=== PATIENT | male | born 1965 | race African-American/Black ===

== ENCOUNTER 2024-12-04 19:54 | Inpatient (IN) | payer MEDICAID, SELFPAY ==
[2024-12-04 19:56] VITALS: BP 131/79; PULSE 85; RESP 18; TEMP 36.4; O2SAT 96; BMI 28.2
--- NOTE | 2024-12-04 20:14 | XR_ITS ---
Examination: Duplex scan of the lower extremity, unilateral right Date and time of exam: December 04, 2024 2101 hours INDICATIONS: Right leg swelling and pain beginning 10 days ago Technique: Duplex scan of the extremity veins using B-mode/grayscale imaging and Doppler spectral analysis and color flow Attention is directed to internal echogenicity, compression and augmentation involving these veins, color flow assessment, spectral analysis Findings: Extensive acute occlusive thrombus involving right common femoral and superficial femoral veins as well as superficial greater saphenous vein, nonocclusive thrombus in the right popliteal and peroneal veins and posterior tibial vein IMPRESSION: Extensive acute deep vein thrombosis
--- NOTE | 2024-12-04 20:14 | EKG_ITS ---
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
--- NOTE | 2024-12-04 20:14 | XR_ITS ---
Examination: PA chest single view Technique whereby PA chest single view Date and time: December 04, 2024 202 hours INDICATIONS: Shortness of breath today. FINDINGS: Normal heart size. Lungs are clear. The osseous structures are intact. IMPRESSION: No active disease.
--- NOTE | 2024-12-04 20:27 | PD.EDSOB ---
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 Patient denies CP, fevers/chills, and URI symptoms. Limitations: no limitations Related Data Allergies Allergy/AdvReac Type Severity Reaction Status Date / Time No Known Allergies Allergy Verified 12/04/24 20:01 Review of Systems Review of Systems Systems Reviewed: All systems reviewed, normal except as documented Constitutional Constitutional: Reports system reviewed and no additional complaints, except as documented, Denies fever(s) and Denies headache(s) ENT Ears, Nose, Mouth, and Throat: Reports as per HPI, Denies disequilibrium, Denies headache(s) and Reports vertigo Cardiovascular Cardiovascular: Reports system reviewed and no additional complaints, except as documented, Reports as per HPI, Denies chest pain and Reports dyspnea Respiratory Respiratory: Reports system reviewed and no additional complaints, except as documented, Denies cough and Reports dyspnea Gastrointestinal Gastrointestinal: Reports system reviewed and no additional complaints, except as documented, Denies abdominal pain, Denies nausea and Denies vomiting Musculoskeletal Musculoskeletal: Reports as per HPI and Reports arthralgias Neurologic Neurologic: Reports system reviewed and no additional complaints, except as documented, Denies confusion, Denies disequilibrium, Denies headache(s) and Reports vertigo Psychiatric Psychiatric: Denies confusion Past Medical History Social History SMOKING STATUS: Never smoker ED Exam General Limitations: Present no limitations General appearance: Present alert and in no apparent distress Head Head exam: Present atraumatic Eye Eye exam: Present normal appearance, PERRL and EOMI ENT ENT exam: Present normal exam, normal oropharynx and mucous membranes moist Neck Neck exam: Present normal inspection, full ROM and trachea midline Chest Chest inspection: Present normal inspection and symmetric chest wall rise Respiratory Respiratory exam: Present normal lung sounds bilaterally Cardiovascular Cardiovascular exam: Present regular rate, normal rhythm and normal heart sounds Abdominal Exam Abdominal exam: Present soft and normal bowel sounds Extremities Exam Extremities exam: Present full ROM Expanded Lower Extremity Exam Hip/Pelvis exam: Present full ROM (R) and swelling Upper leg exam: Present full ROM and swelling Knee exam: Present full ROM and swelling Lower leg exam: Present full ROM and swelling Ankle exam: Present full ROM and swelling Back Exam Back exam: Present normal inspection and full ROM Neurological Exam Neurological exam: Present alert, oriented X3 and CN II-XII intact Psychiatric Psychiatric exam: Present normal affect and normal mood Skin Skin exam: Present warm, dry, intact and normal color Course Quality Measures none Orders Category Date Time Status Admit to Inpatient Status Routine Admission 12/05/24 00:02 Active Patient Condition Routine Admission 12/05/24 00:01 Ordered COVID-19 Screening Questionnaire NOW Care 12/04/24 23:[address] Screening NOW Care 12/04/24 21:17 Active Decision to Admit X1 Care 12/04/24 23:29 Completed EKG (ED ONLY) *Do not use* NOW Care 12/04/24 20:14 Completed Insert IV NOW Care 12/04/24 21:17 Active Notify provider NEEDED Care 12/05/24 00:01 Active Diet Regular Diet 12/05/[address] angio chest Stat Exams 12/04/24 21:17 Completed EKG (ED Only) Stat Exams 12/04/24 20:14 Draft US venous doppler LE RT Stat Exams 12/04/24 20:14 Completed XR chest 1V portable Stat Exams 12/04/24 20:14 Completed CBC AM DRAW Lab 12/05/24 05:00 Ordered CBC AM DRAW Lab 12/06/24 05:00 Ordered CBC AM DRAW Lab 12/07/24 05:00 Ordered CBC Stat Lab 12/04/24 20:40 Completed Comprehensive Metabolic Panel Stat Lab 12/04/24 20:40 Completed Lipid Panel AM DRAW Lab 12/05/24 05:00 Ordered Magnesium AM DRAW Lab 12/05/24 05:00 Ordered Magnesium AM DRAW Lab 12/06/24 05:00 Ordered Magnesium AM DRAW Lab 12/07/24 05:00 Ordered Partial Thromboplastin Time Stat Lab 12/04/24 20:40 Completed Prothrombin Time with INR Stat Lab 12/04/24 20:40 Completed Renal Function Panel AM DRAW Lab 12/05/24 05:00 Ordered Renal Function Panel AM DRAW Lab 12/06/24 05:00 Ordered Renal Function Panel AM DRAW Lab 12/07/24 05:00 Ordered Thyroid Stimulating Hormone AM DRAW Lab 12/05/24 05:00 Ordered Troponin I Stat Lab 12/04/24 20:40 Completed ALBUTEROL RT 0.5ml [Proventil Rt 0.5ml] Med 12/05/24 00:01 Active 2.5 mg INH Q4HR PRN Acetaminophen Tab [Tylenol Tab] Med 12/05/24 00:01 Active 650 mg PO Q6H PRN Ondansetron Inj [Zofran Inj] Med 12/05/24 00:01 Active 4 mg IVP Q6H PRN Sodium Chloride Rt Padmini 0.9% [NS Rt Padmini 0.9%] Med 12/05/24 00:01 Active 3 ml INH PRN PRN Code Status Routine Oth 12/05/24 00:01 Ordered Oxygen Delivery PRN RT 12/05/24 00:01 Active Vital Signs Vital signs: Vital Signs Temperature 97.6 F 12/04/24 19:56 Pulse Rate 85 12/04/24 19:56 Respiratory Rate 18 12/04/24 19:56 Blood Pressure 131/79 H 12/04/24 19:56 Pulse Oximetry (%) 96 12/04/24 19:56 Oxygen Delivery Method Room Air 12/04/24 19:56 O2 at 96% on RA and WNLs Shortness of Breath / Dyspnea MDM Narrative MDM Narrative:: 58M with history of childhood asthma and 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 Patient denies CP, fevers/chills, and URI symptoms. Physical exam reveals RLE swelling. Normal WOB and clear lungs. Gait normal. Speech normal. Patient is afebrile, calm, and alert. EKG is NSR with RBBB. CXR unremarkable. CBC and coags normal. CMP unremarkable. US extensive DVT. CTA multiple PEs. Spoke to IM resident who reports to Dr. Youngblood, who will admit patient. Patient data External records reviewed:: None Clinical information provided by:: patient Social determinants that could affect healthcare access:: none Patient has the following chronic illnesses:: childhood asthma and Valley Fever How is presenting disease/condition affected by chronic disease/condition?: exacerbated by Evaluation data The following diagnostics were reviewed and interpreted by me:: lab results, radiology exam(s) and EKG tracing(s) Lab and/or radiology exams considered but not ordered:: ordered Interpretation Summary: above Medications / Prescriptions Medications or Prescriptions considered but not ordered:: ordered Medication administrations:: Medication Administration History Acetaminophen (Acetaminophen 325 Mg Tablet) 650 mg PO Q6H PRN PRN Reason: Fever >100 or pain Stop: 01/04/25 00:00 Albuterol (Albuterol Rt 2.5 Mg/0.5 Ml Nebu) 2.5 mg INH Q4HR PRN PRN Reason: SHORTNESS OF BREATH OR WHEEZE Stop: 01/04/25 00:00 Heparin Sodium/Dextrose (Heparin In D5w Ivpb) 25,000 unit in 250 mls @ 17.472 mls/hr IV .[id number] [facility]; Protocol Stop: 12/19/24 00:14 Ondansetron HCl (Ondansetron Inj 2 Mg/Ml Inj 2 Ml) 4 mg IVP Q6H PRN; Protocol PRN Reason: NAUSEA OR VOMITING Stop: 01/04/25 00:00 Sodium Chloride (Sodium Chloride Rt Padmini 0.9% 3 Ml Nebu) 3 ml INH PRN PRN PRN Reason: SOLN Stop: 01/04/25 00:00 Discontinued Medications Heparin Sodium (Porcine) (Heparin Sod Inj 5000 Unit/Ml Vial) 7,765 unit IV X1 ONE; Protocol Stop: 12/05/24 00:06 above Consultations Consultation(s) initiated? (list below): Yes Diagnosis Shortness of Breath Differential Diagnosis: acute exacerbation of chronic obstructive airways disease, congestive heart failure, community acquired pneumonia, asthma with exacerbation, pulmonary embolism and other (DVT) Most likely diagnosis given after review of the tests above:: DVT and PE Admission Indicated Admission indicated?: indicated Admission Request Was there a request for admission?: Yes Admission Attestation Admission request attestation: Discussed case with [Dr. Youngblood] from Hospitalist service regarding admission. Discussed patients ED course, exam findings, labs, and radiology results. The Hospitalist [agrees] to accept the patient for admission. Disposition Plan Disposition Plan: Admit Discharge Plan Plan Patient Disposition: Admit Acute Care w/in Hospital Discharge Disposition comment: Stable Problem List Clinical Impression: Pulmonary embolism, DVT (deep venous thrombosis)
[2024-12-04 20:53] LABS: Basophils # (Auto) 0.0 Thou/mm3 (0.0-0.2); Basophils % (Auto) 1 % (0-2.5); Eosinophils # (Auto) 0.3 Thou/mm3 (0.0-0.5); Eosinophils % (Auto) 5 % (0-10); Hematocrit 39.3 % (41.0-53.0); Hemoglobin 13.7 g/dL (13.5-16.0); Immature Granulocytes Auto 0.01 Thou/mm3 (0.00-0.00); Lymphocytes # (Auto) 1.6 Thou/mm3 (1.0-4.8); Lymphocytes % (Auto) 25 % (10-50); Mean Corpuscular HGB Conc 34.9 g/dl (31.0-37.0); Mean Corpuscular Hemoglobin 31.1 pg (25.0-35.0); Mean Corpuscular Volume 89 fL (80-100); Monocytes # (Auto) 1.0 Thou/mm3 (0.0-0.8); Monocytes % (Auto) 16 % (0-12); Neutrophils # (Auto) 3.4 Thou/mm3 (1.8-7.7); Neutrophils % (Auto) 54 % (37-80); Nucleated Red Blood Cell # 0.00 Thou/mm3 (0.00-0.00); Nucleated Red Blood Cell % 0 /100 WBC (0); Platelet Count 170 Thou/mm3 (140-440); RDW Standard Deviation 39.9 fL (35.1-43.9); Red Blood Count 4.41 Miln/mm3 (4.50-5.90); White Blood Count 6.3 Thou/mm3 (3.8-10.6)
[2024-12-04 21:17] LABS: INR 1.0 (0.9-1.3); Partial Thromboplastin Time 27.3 Seconds (22.0-36.0); Prothrombin Time 11.1 Seconds (9.0-12.2)
--- NOTE | 2024-12-04 21:17 | XR_ITS ---
Examination: CTA chest with intravenous contrast 2-D reconstructions 3-D reconstructions, vascular Date and time of exam: December 04, 2024 1104 hours INDICATIONS: Positive for DVT on venous Doppler study today, shortness of breath chest pain today CTDI: vol (mGy) 15.77 DLP: (mGycm) 440 Technique: Multiple axial sections of the thorax have been obtained. 3 mm slice thickness, from below the hemidiaphragms to above the apices of the lungs. Mediastinal and lung density settings have been obtained. 2-D sagittal and coronal reconstructions. 3-D angiographic renderings, 3-D volume renderings, 3D post processing, vascular maximum intensity projections obtained. Contrast administered is 100 cc Isovue 370 intravenous. Low dose protocols were performed. One or more of the following dose reduction techniques were used; automated exposure control, adjustment of the mA and/or KV according to patient size, use of iterative reconstruction technique. Findings: No thoracic aortic aneurysmal dilatation Numerous bilateral pulmonary artery emboli including a distal left main pulmonary artery as well as upper and lower lobe bilateral pulmonary artery branches No pneumonia or pulmonary edema No pulmonary infarction or pneumonia The visualized liver or splenic lesion Contracted gallbladder IMPRESSION: Numerous bilateral pulmonary artery emboli
[2024-12-04 21:23] LABS: Alanine Aminotransferase 12 U/L (10-49); Albumin, Serum 4.6 gm/dL (3.5-5.0); Albumin/Globulin Ratio 1.6 (1.2-2.2); Alkaline Phosphatase 71 U/L (46-116); Anion Gap 9 (7-16); Aspartate Amino Transferase 17 U/L (0-34); BUN/Creatinine Ratio 8 Ratio (12-20); Bilirubin,Total 1.4 mg/dL (0.3-1.2); Blood Urea Nitrogen 10 mg/dL (9-23); Calcium 9.5 mg/dL (8.3-10.6); Calcium (Corrected) 9.5 mg/dL (8.5-10.1); Carbon Dioxide 29.4 mMol/L (20.0-31.0); Chloride 105 mMol/L (98-107); Creatinine (Component) 1.3 mg/dL (0.6-1.3); Estimated Creatinine Clearance 75.1 mL/min (>60); Globulin 2.9 gm/dL (2.3-3.5); Glucose 98 mg/dL (74-106); Osmolality,Calculated 283 (275-295); Potassium 3.4 mMol/L (3.4-5.1); Sodium 143 mMol/L (136-145); Total Protein 7.5 gm/dL (5.7-8.2); Troponin I < 0.020 ng/mL (0.0-0.045); eGFR > 60 See Note
[2024-12-05] VITALS (8 sets, daily range): BP systolic 149–171; BP diastolic 85–95; PULSE 72–106; RESP 16–98; TEMP 36.2–36.9; O2SAT 96–99; BMI 28.5
--- NOTE | 2024-12-05 00:01 | ESHP_ITS ---
Documentation for date of: 12/05/24 HPI History of Present Illness Chief complaint: Leg Swelling History of present illness: HPI: Patient is a 78 male no significant past medical history presenting with chief complaint of right leg swelling. According to the patient last week Saturday he first noticed his right leg starting to swell which progressively worsened and spread proximally up to his groin today. He denies any pain, warmth, fevers, vomiting and diarrhea. Also he had associated shortness of breath which began today both at rest and exacerbated by minimal exertion. Denied any orthopnea, PND, chest pain/pressure and palpitations. Today he video called his niece who is an RN in [place] and showed his leg, she instructed him to immediately present to the emergency department. Upon review patient denied any recent long car drives, he flew to [place] in August, no recent hospitalizations or prolonged immobilization, no history of cancer or hormonal therapy. He also denied any family history of coagulopathies including sickle cell disease and family history of DVT. He also never had a colonoscopy ED course: BP 131/79, pulse 85, RR 18, temp 97.6 F, SpO2 96% on room air. Labs showed T. bili 1.4. EKG showed sinus rhythm, rate 82. No acute ST changes. CXR showed no signs of pulmonary edema, effusion or consolidation. Lower extremity duplex ultrasound showed extensive acute DVT on the right CTA showed numerous bilateral pulmonary artery emboli Patient will be admitted for treatment and management of acute DVT and PE. Review of Systems Review of Systems Narrative Review of Systems: GENERAL: Denies fever/chills or diaphoresis. HEENT: Denies headaches or visual changes. Denies discharge. Neuro: Denies unusual weakness or difficulty speaking. CARDIO: As above PULM: As above GI: Denies abdominal pain, N/V/C/D. Reports having BMs. URO: Denies burning/itching/pain/urinary changes. MSK/EXT/SKIN: Denies joint/skeletal/muscle pain, issues/changes in upper or lower extremities, itchiness, or superficial pain. PSYCH: Cooperative, pleasant mood & affect. The rest of the review of systems is otherwise negative. 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 Education Level: Graduated highschool Tobacco use: Denies ETHO use: Denies Illicit drug use: Daily Marijuana use Social History Note: lives alone Family History: Grandmother- Glioblastoma Grandfather- Heart disease, in his 30's Exam Vital Signs Temp Pulse Resp BP Pulse Ox O2 Del Method 97.6 F 85 18 131/79 H 96 Room Air 12/04/24 19:56 12/04/24 19:56 12/04/24 19:56 12/04/24 19:56 12/04/24 19:56 12/04/24 19:56 Narrative Exam Constitutional Alert, oriented x 3 and comfortable HEENT Vision grossly intact. Patent nares. Trachea midline Respiratory Chest normal on inspection and clear auscultation bilaterally Cardiovascular S1 and S2 audible, RRR. No murmurs carotid bruit. No gross JVD. Abdominal Soft and non tender to palpation in all quadrants. BS + Genitourinary No bladder tenderness, no flank pain. Normal to palpation Musculoskeletal Extremities tone within normal limits. Nonpitting edema of right lower extremity up to groin. Healed surgical scar over the right knee. Homans' sign negative Neurological CN II - XII grossly intact. Extremity motor and sensation grossly intact. Skin Warm, dry and intact. No apparent lesions. Psychiatric Patient has good affect, is cooperative Results: Labs 12/05/24 04:46 12/05/24 04:46 Labs: Short CBC 12/04/24 Range/Units 20:40 WBC 6.3 (3.8-10.6) Thou/mm3 Hgb 13.7 (13.5-16.0) g/dL Hct 39.3 L (41.0-53.0) % Plt Count 170 (140-440) Thou/mm3 BMP 12/04/24 20:40 Sodium 143 Potassium 3.4 Chloride 105 Carbon Dioxide 29.4 BUN 10 Creatinine 1.3 Glucose 98 Calcium 9.5 Cardiac Enzymes 12/04/24 Range/Units 20:40 Troponin I < 0.020 (0.0-0.045) ng/mL Liver Function 12/04/24 Range/Units 20:40 Total Bilirubin 1.4 H (0.3-1.2) mg/dL AST 17 (0-34) U/L ALT 12 (10-49) U/L Alkaline Phosphatase 71 (46-116) U/L Albumin 4.6 (3.5-5.0) gm/dL Quality Measures Quality Measures none Medications Home Medications and Allergies Home Medications ?Medication ?Instructions ?Recorded ?Confirmed ?Type No Known Home Medications 12/05/2411/17 History Allergies Allergy/AdvReac Type Severity Reaction Status Date / Time No Known Allergies Allergy Verified 12/04/24 20:01 Assessment & Plan Plan Patient is a 78 male no significant past medical history presenting with chief complaint of right leg swelling. Patient will be admitted for treatment and management of acute DVT and PE. Acute, unprovoked DVT Acute pulmonary embolism Patient had progressively worsening right leg swelling since last week now associated with shortness of breath. Lower extremity duplex ultrasound showed extensive right lower limb DVT. CTA showing extensive bilateral pulmonary emboli. Patient has no traditional risk factors for DVT. He will benefit from age- appropriate cancer screening and hypercoagulable workup. Plan: - Factor V Leiden, prothrombin gene mutation, anticardiolipin antibodies and anti-beta 2 glycoprotein 1 antibodies ordered as part of hypercoagulable workup.[These are not affected by starting anticoagulation] ? Heparin infusion, DVT protocol ? Transthoracic echocardiogram ordered to assess for right heart strain - Recommend patient be referred for outpatient colonoscopy and age appropriate cancer screening ? eyeglass frames polisher, Dr. Sung consulted for assessment for thrombectomy. History of marijuana use Patient says that he uses medical marijuana daily for his neck pain. Plan: -Patient extensively counseled on smoking cessation and informed of the risks of blood clots, strokes etc. Patient agrees to think about it. History of Valley Fever [2013] Patient states that he never was prescribed any medication for valley fever. He only got an inhaler from his doctor. Plan: -Cocci serology Health maintenance: Disposition: Heparin Infusion. Pending echo. Cardiology consult pending Diet: Regular Lines: pIVs GI Prophylaxis: None Thrombo Prophylaxis: Heparin infusion Code status: FULL CODE Plan of care discussed with Attending Dr. Rylie Lockwood MD PGY 2 Disclaimer: This note was dictated by speech recognition. Minor errors in cloth measurer may be present due to voice recognition software. Attending Provider Attestation/Addendum 58-year-old male patient who is being admitted for DVT and acute pulmonary embolism. He anticoagulation was started. I discussed with and supervised the resident physician who took care of this patient. I agree with the assessment and plan as above.
--- NOTE | 2024-12-05 00:05 | ECHO_ITS ---
Transthoracic Echo Report Ht (in): 73 Wt (lb): 214 Exam Location: Echo Lab Status: Emergency Pressure Tank Operator: Marilin Weaver Indications: Procedure Performed: BP: 144 / 77 HR: 68 Technical Quality: Technically difficult study MEASUREMENTS (Male / Female) Normal Values 2D ECHO LV Diastolic Diameter PLAX 4.3 cm 4.2 - 5.9 / 3.9 - 5.3 cm LV Systolic Diameter PLAX 2.9 cm IVS Diastolic Thickness 1.1 cm 0.6 - 1.0 / 0.6 - 0.9 cm LVPW Diastolic Thickness 1.0 cm 0.6 - 1.0 / 0.6 - 0.9 cm LV Relative Wall Thickness 0.5 LVOT Diameter 1.6 cm LV Ejection Fraction MOD BP 61.9 % >= 55 % LV Cardiac Index MOD BP 1551.5 cm?/min?m? LV Ejection Fraction MOD 4C 61.6 % LV Cardiac Index MOD 4C 1602.8 cm?/min?m? LV Ejection Fraction 4C AL 63.3 % LV Cardiac Index 4C AL 1727.1 cm?/min?m? LV Ejection Fraction MOD 2C 61.9 % LV Cardiac Index MOD 2C 1473.0 cm?/min?m? LV Ejection Fraction 2C AL 62.6 % LV Cardiac Index 2C AL 1555.0 cm?/min?m? LA Volume Index 16.6 cm?/m? 16 - 28 cm?/m? M-MODE Aortic Root Diameter MM 2.9 cm LA Systolic Diameter MM 3.6 cm LA Ao Ratio MM 1.2 AV Cusp Separation MM 2.4 cm DOPPLER AV Peak Velocity 149.5 cm/s AV Peak Gradient 8.9 mmHg AV Mean Gradient 6.0 mmHg AV Velocity Time Integral 33.2 cm LVOT Peak Velocity 129.0 cm/s LVOT Peak Gradient 6.7 mmHg LVOT Velocity Time Integral 31.7 cm LVOT Cardiac Index 1923.9 cm?/min?m? AV Area Cont Eq vti 1.9 cm? AV Area Cont Eq pk 1.7 cm? MV Area PHT 3.9 cm? MR Peak Velocity 505.0 cm/s MR Peak Gradient 102.0 mmHg Mitral E Point Velocity 69.8 cm/s Mitral A Point Velocity 70.3 cm/s Mitral E to A Ratio 1.0 LV E' Lateral Velocity 15.0 cm/s Mitral E to LV E' Lateral Ratio 4.7 LV E' Septal Velocity 10.2 cm/s Mitral E to LV E' Septal Ratio 6.8 FINDINGS Left Ventricle Normal left ventricular size, wall thickness, systolic function with no obvious regional wall motion abnormalities. Normal left ventricular diastolic filling pattern for age. The ejection fraction is visually estimated at 65%.. Right Ventricle The right ventricle is normal in size and systolic function. Left Atrium The left atrium is normal by two-dimensional, color flow and Doppler imaging with no structural abnormalities, no thrombus formation present. Right Atrium The right atrium is normal by two-dimensional imaging, color flow and Doppler imaging with no structural abnormalities, no thrombus formation present. Atrial Septum The interatrial septum appears normal with no evidence of a shunt. Aorta The aorta is normal by two-dimensional, color flow and Doppler interrogation. Mitral Valve The mitral valve is normal by two-dimensional, color flow and Doppler interrogation. Trace mitral regurgitation. Aortic Valve The aortic valve is trileaflet and normal by two-dimensional, color flow and Doppler interrogation. There is no significant aortic valve regurgitation. Tricuspid Valve The tricuspid valve is normal by two-dimensional, color flow and Doppler interrogation. There is trace tricuspid valve regurgitation. Pulmonic Valve The pulmonic valve is not well visualized. There is no significant pulmonic valve regurgitation. Vessels The pulmonary artery appears normal. The inferior vena cava pulmonary and hepatic veins appear normal. Pericardium The pericardium is normal by two-dimensional imaging. There is no significant pericardial effusion. CONCLUSIONS Indication: Rule out right heart strain Normal-sized cardiac chambers. Normal size left ventricle with excellent LV systolic function ejection fraction of 65%. Normal-sized right atrium. Normal-sized right ventricle with normal right ventricular systolic function No evidence of right ventricular strain. Trace tricuspid valve regurgitation with normal pulmonary artery pressures. No evidence of pericardial effusion. Porsha Montoya (Electronically Signed) Final Date: 06 December 2024 15:48
--- NOTE | 2024-12-05 02:17 | PC.NURSE ---
called pharmacy heparin pending 2hrs unverfied.
[2024-12-05] MEDS: HEPARIN SOD INJ 5000 UNIT/ML VIAL 7765 UNIT IV (03:16)
[2024-12-05] MEDS: Heparin/D5w 25K 250 ML Ivpb 25,000 UNIT/250 ML BAG 17.472 UNIT IV ×2 (03:19→19:31)
[2024-12-05 05:09] LABS: Misc Send Out* See Sep Rpt
[2024-12-05 05:12] LABS: Basophils # (Auto) 0.0 Thou/mm3 (0.0-0.2); Basophils % (Auto) 1 % (0-2.5); Eosinophils # (Auto) 0.4 Thou/mm3 (0.0-0.5); Eosinophils % (Auto) 6 % (0-10); Hematocrit 36.8 % (41.0-53.0); Hemoglobin 12.8 g/dL (13.5-16.0); Immature Granulocytes Auto 0.01 Thou/mm3 (0.00-0.00); Lymphocytes # (Auto) 1.6 Thou/mm3 (1.0-4.8); Lymphocytes % (Auto) 25 % (10-50); Mean Corpuscular HGB Conc 34.8 g/dl (31.0-37.0); Mean Corpuscular Hemoglobin 31.4 pg (25.0-35.0); Mean Corpuscular Volume 90 fL (80-100); Monocytes # (Auto) 0.9 Thou/mm3 (0.0-0.8); Monocytes % (Auto) 15 % (0-12); Neutrophils # (Auto) 3.4 Thou/mm3 (1.8-7.7); Neutrophils % (Auto) 54 % (37-80); Nucleated Red Blood Cell # 0.00 Thou/mm3 (0.00-0.00); Nucleated Red Blood Cell % 0 /100 WBC (0); Platelet Count 159 Thou/mm3 (140-440); RDW Standard Deviation 39.9 fL (35.1-43.9); Red Blood Count 4.08 Miln/mm3 (4.50-5.90); White Blood Count 6.3 Thou/mm3 (3.8-10.6)
[2024-12-05 05:38] LABS: Glucose Estimated Average 114 mg/dL (80-131); Hemoglobin A1C 5.6 % Hgb (4.8-6.0)
[2024-12-05 05:45] LABS: Albumin, Serum 4.0 gm/dL (3.5-5.0); Anion Gap 7 (7-16); BUN/Creatinine Ratio 7 Ratio (12-20); Blood Urea Nitrogen 8 mg/dL (9-23); Calcium 8.9 mg/dL (8.3-10.6); Calcium (Corrected) 8.9 mg/dL (8.5-10.1); Carbon Dioxide 29.7 mMol/L (20.0-31.0); Cardiac Risk Estimate 5.2 RATIO (4.0-6.7); Chloride 107 mMol/L (98-107); Cholesterol 204 mg/dL (132-200); Creatinine (Component) 1.2 mg/dL (0.6-1.3); Estimated Creatinine Clearance 81.3 mL/min (>60); Glucose 103 mg/dL (74-106); HDL Cholesterol 39 mg/dL (40-60); LDL Cholesterol,Calculated 152 mg/dL (0-130); Magnesium 1.8 mg/dL (1.6-2.6); Osmolality,Calculated 285 (275-295); Phosphorous 2.8 mg/dL (2.4-5.1); Potassium 4.3 mMol/L (3.4-5.1); Sodium 144 mMol/L (136-145); Thyroid Stimulating Hormone 1.07 uIU/mL (0.55-4.78); Triglycerides 64 mg/dL (30-150); eGFR > 60 See Note
[2024-12-05 10:43] LABS: Partial Thromboplastin Time 84.2 Seconds (22.0-36.0)
--- NOTE | 2024-12-05 12:43 | ESPR_ITS ---
<Statement entered by Qamar Jimenez MD - 12/15/24 07:45> I reviewed above note and agree with findings and plans. I have also personally examined the patient with medicine team and went over assessment and plan with medical team including risk management internship and resident physician. Documentation for date of: 12/05/24 Subjective Subjective Interval history: Patient was seen and examined at bedside. A.m. vitals and labs reviewed. Patient denied any recent surgeries, travels, or trauma to his right knee. Venous Doppler of bilateral lower extremities showed extensive right lower limb. DVT. CTA chest showed numerous bilateral pulmonary artery emboli including distal left main pulmonary artery as well as upper and lower lobe bilateral pulmonary artery branches. Per cardiology recommendations, instead of switching to eliquis, will continue heparin infusion for possibility of pulmonary thrombectomy, but as patient is currently hemodynamically stable, it is unlikely at this moment. Today, patient feels much more stable. His right leg edema has improved. Still pain in right groin area, but no shortness of breathe, chest pain, palpitation, fevers or chills. Exam Vital Signs Temp Pulse Resp BP Pulse Ox O2 Del Method 97.2 F 75 17 150/95 H 96 Room Air 12/05/24 11:49 12/05/24 11:49 12/05/24 11:49 12/05/24 11:49 12/05/24 11:49 12/05/24 11:49 Narrative Exam General: No acute distress, well nourished Eye: PERRL, EOMI, normal conjunctiva, no scleral icterus HENT: Normocephalic, atraumatic, hearing intact to conversation at normal volume, moist oral mucosa Neck: Supple, non-tender, no JVD, no lymphadenopathy Lungs: Non-labored respirations, symmetric chest rise, Clear to auscultate bilaterally Heart: Peripheral pulses intact bilaterally Abdomen: Soft, non-tender, non-distended Musculoskeletal: Normal range of motion and strength. Right lower extremity shows non-pitting edema extending from knee to thigh compared to the left. Pain on palpitation in right groin area. Skin: Skin is warm, dry, no rashes or lesions. Psychiatric: Cooperative, appropriate mood and affect Neuro: Cranial nerves II-XII grossly intact. Strength 5/5 throughout. Sensations intact to light touch. Objective Labs 12/05/24 04:46 12/05/24 04:46 Labs: Laboratory Results - last 24 hr 12/04/24 12/05/24 12/05/24 20:40 04:46 09:35 WBC 6.3 6.3 RBC 4.41 L 4.08 L Hgb 13.7 12.8 L Hct 39.3 L 36.8 L MCV 89 90 MCH 31.1 31.4 MCHC 34.9 34.8 RDW Std Deviation 39.9 39.9 Plt Count 170 159 Neut % (Auto) 54 54 Lymph % (Auto) 25 25 [place] % (Auto) 16 H 15 H Eos % (Auto) 5 6 Baso % (Auto) 1 1 Neut # (Auto) 3.4 3.4 Lymph # (Auto) 1.6 1.6 [place] # (Auto) 1.0 H 0.9 H Eos # (Auto) 0.3 0.4 Baso # (Auto) 0.0 0.0 Immature Gran # (Auto) 0.01 H 0.01 H Absolute Nucleated RBC 0.00 0.00 Immature Gran % 0 0 Nucleated RBC % 0 0 PT 11.1 INR 1.0 APTT 27.3 84.2 H D Sodium 143 144 Potassium 3.4 4.3 D Chloride 105 107 Carbon Dioxide 29.4 29.7 Anion Gap 9 7 BUN 10 8 L Creatinine 1.3 1.2 Estim Creat Clear Calc 75.1 81.3 eGFR > 60 > 60 BUN/Creatinine Ratio 8 L 7 L Glucose [address] Glu mg/dL 114 Hemoglobin A1c 5.6 Calculated Osmolality 283 285 Calcium 9.5 8.9 Corrected Calcium 9.5 8.9 Phosphorus 2.8 Magnesium 1.8 Total Bilirubin 1.4 H AST 17 ALT 12 Alkaline Phosphatase 71 Troponin I < 0.020 Total Protein 7.5 Albumin 4.6 4.0 D Globulin 2.9 Albumin/Globulin Ratio 1.6 Triglycerides 64 Cholesterol 204 H LDL Cholesterol, Calc 152 H HDL Cholesterol 39 L Cholesterol/HDL Ratio 5.2 TSH 1.07 Quality Measures Quality Measures none Assessment & Plan Assessment Current Active Medications: Generic Name Dose Route Start Last Admin Trade Name Freq PRN Reason Stop Dose Admin Acetaminophen 650 mg 12/05/24 00:01 Acetaminophen 325 Mg Tablet PO 01/04/25 00:00 Q6H PRN Fever >100 or pain Albuterol 2.5 mg 12/05/24 00:01 Albuterol Rt 2.5 Mg/0.5 Ml Nebu INH 01/04/25 00:00 Q4HR PRN SHORTNESS OF BREATH OR WHEEZE Heparin Sodium/Dextrose 25,000 unit in 250 mls @ 17.472 mls/hr 12/05/24 00:15 12/05/24 10:57 Heparin In D5w Ivpb IV 12/19/24 00:14 16 units/kg/hr .[id number] JERRY 15.531 mls/hr Titration Protocol 18 UNITS/KG/HR Ondansetron HCl 4 mg 12/05/24 00:01 Ondansetron Inj 2 Mg/Ml Inj 2 Ml IVP 01/04/25 00:00 Q6H PRN NAUSEA OR VOMITING Protocol Sodium Chloride 3 ml 12/05/24 00:01 Sodium Chloride Rt Padmini 0.9% 3 Ml Nebu INH 01/04/25 00:00 PRN PRN SOLN Plan Patient is a 78 male no significant past medical history presenting with chief complaint of right leg swelling. Patient will be admitted for treatment and management of acute DVT and PE. #Acute, unprovoked DVT #Acute pulmonary embolism - On admission, patient had progressively worsening right leg swelling since last week now associated with shortness of breath. He no longer has shortness of breathe. -Lower extremity venous doppler ultrasound (12/04/2024) showed Extensive acute deep vein thrombosis of right extremity. -Chest CTA (12/04/2024): Numerous bilateral pulmonary artery emboli Patient has no traditional risk factors for DVT. He will benefit from age- appropriate cancer screening and hypercoagulable workup. Plan: - Factor V Leiden, prothrombin gene mutation, anticardiolipin antibodies and anti-beta 2 glycoprotein 1 antibodies ordered as part of hypercoagulable workup.[These are not affected by starting anticoagulation] ? Continue on heparin drip. ? Transthoracic echocardiogram pending - Recommend patient be referred for outpatient colonoscopy and age appropriate cancer screening ? pipe fitter maintenance, Dr. Sung consulted for assessment for thrombectomy Possible pumonary thrombectomy if patient become hymodinamically unstable. #History of marijuana use Patient says that he uses medical marijuana daily for his neck pain. Plan: -Patient extensively counseled on smoking cessation and informed of the risks of blood clots, strokes etc. Patient agrees to think about it. 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 He only got an inhaler from his doctor. Plan: -Cocci serology Health maintenance: Disposition: Heparin Infusion. Pending echo. Cardiology consult pending Diet: Regular Lines: pIVs GI Prophylaxis: None Thrombo Prophylaxis: Heparin infusion Code status: FULL CODE Assessment and plan discussed with my attending physician Dr. Tony Ramirez (PGY-1)- Internal medicine resident
--- NOTE | 2024-12-05 13:03 | PD.RESCONSUL ---
HPI Data of Consult Requesting Physician: Connor Youngblood MD Admitting Provider: Connor Youngblood MD Attending Provider: Connor Youngblood MD Primary Care Provider: Physician No Primary/Family Consult Narrative Reason for consult: DVT and pulmonary embolism History of present illness: A 57-year-old male with 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 Patient was apparently normal 1 week ago, then noticed heaviness in his right lower extremity when he is getting off of his cognos tm1 developer around 6 AM on 11/26/2024. 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 Later noted swelling in the right leg which is gradually progressive and associated with heaviness and numbness. On the day of admission, patient noted to have shortness of breath even after walking short distances around the home for which he called his niece who is a nurse practitioner and she recommended to go to the emergency department. Denies trauma, recent illness, major surgeries, immobilization, cancer. Denies previous history of CAD, similar complaints in the past, similar complaints in the family. ED course: - Vitals at the time of admission are stable except for mildly elevated blood pressure, 131/79 mmHg - Labs at the time of admission are significant for total bilirubin 1.4. Rest of CBC and CMP are within normal limits - Chest x-ray at the time of admission did not show any opacities - Venous Doppler of bilateral lower extremities showed acute deep vein thrombosis - EKG done at that time showed normal sinus rhythm with incomplete right bundle branch block - CTA chest showed numerous bilateral pulmonary artery emboli including distal left main pulmonary artery as well as upper and lower lobe bilateral pulmonary artery branches - Started on heparin drip in view of pulmonary embolism Past medical history: Valley fever Past surgical history: Tendon repair of right knee in 2012, right orbital fracture s/p placement of plates in 2000, left fifth digit fracture, fixed with screws Social history: 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 Lives at home. Smokes marijuana once every day since 2000 for muscle spasms, drinks alcohol-beer approximately 6/week. Denies any other illicit drug abuse Family history: No significant family history of CAD except in maternal grandfather who in his 30s due to heart disease. Maternal grandmother had history of lung carcinoma secondary to extensive smoking and in her 70s. Medication history: Denies medication use Allergies: NKDA Cardiology is consulted in view of pulmonary embolism secondary to right lower extremity DVT for possible pulmonary thrombectomy. cc:: cc: Connor Youngblood MD Review of Systems Review of Systems Systems Reviewed: All systems reviewed, normal except as documented Exam Vital Signs Temp Pulse Resp BP Pulse Ox O2 Del Method 97.2 F 75 17 150/95 H 96 Room Air 12/05/24 11:49 12/05/24 11:49 12/05/24 11:49 12/05/24 11:49 12/05/24 11:49 12/05/24 11:49 Narrative Exam General: Awake. Moderately built and nourished HEENT: Normocephalic, atraumatic, mucous membranes moist. Heart: Regular rate and rhythm, no murmurs. Lungs: Clear to auscultation with no wheezing or crackles. Abdomen: Soft, nondistended, nontender, positive bowel sounds. ?No guarding or rebound tenderness. Neurologic: Alert and oriented x3, no gross neurological deficit, and patient able to move all 4 extremities. Extremities: Noted extensive right lower extremity swelling with mild induration extending up to thigh with localized raise of temperature with minimal tenderness Skin: No rash or ecchymoses. Results Labs 12/05/24 04:46 12/05/24 04:46 Labs: Short CBC 12/04/24 12/05/24 Range/Units 20:40 04:46 WBC 6.3 6.3 (3.8-10.6) Thou/mm3 Hgb 13.7 12.8 L (13.5-16.0) g/dL Hct 39.3 L 36.8 L (41.0-53.0) % Plt Count 170 159 (140-440) Thou/mm3 BMP 12/04/24 12/05/24 20:40 04:46 Sodium 143 144 Potassium 3.4 4.3 D Chloride 105 107 Carbon Dioxide 29.4 29.7 BUN 10 8 L Creatinine 1.3 1.2 Glucose 98 103 Calcium 9.5 8.9 Cardiac Enzymes 12/04/24 Range/Units 20:40 Troponin I < 0.020 (0.0-0.045) ng/mL Liver Function 12/04/24 12/05/24 Range/Units 20:40 04:46 Total Bilirubin 1.4 H (0.3-1.2) mg/dL AST 17 (0-34) U/L ALT 12 (10-49) U/L Alkaline Phosphatase 71 (46-116) U/L Albumin 4.6 4.0 D (3.5-5.0) gm/dL Quality Measures Quality Measures none Medications Home Medications and Allergies Home Medications ?Medication ?Instructions ?Recorded ?Confirmed ?Type No Known Home Medications 12/05/24 12/05/24 History Allergies Allergy/AdvReac Type Severity Reaction Status Date / Time No Known Allergies Allergy Verified 12/04/24 20:01 Visit Medications Acetaminophen (Acetaminophen 325 Mg Tablet) 650 mg PO Q6H PRN PRN Reason: Fever >100 or pain Stop: 01/04/25 00:00 Albuterol (Albuterol Rt 2.5 Mg/0.5 Ml Nebu) 2.5 mg INH Q4HR PRN PRN Reason: SHORTNESS OF BREATH OR WHEEZE Stop: 01/04/25 00:00 Heparin Sodium/Dextrose (Heparin In D5w Ivpb) 25,000 unit in 250 mls @ 17.472 mls/hr IV .[id number]; Protocol Stop: 12/19/24 00:14 Last Titration: 12/05/24 10:57 Dose: 16 units/kg/hr, 15.531 mls/hr Ondansetron HCl (Ondansetron Inj 2 Mg/Ml Inj 2 Ml) 4 mg IVP Q6H PRN; Protocol PRN Reason: NAUSEA OR VOMITING Stop: 01/04/25 00:00 Sodium Chloride (Sodium Chloride Rt Padmini 0.9% 3 Ml Nebu) 3 ml INH PRN PRN PRN Reason: SOLN Stop: 01/04/25 00:00 Discontinued Medications Heparin Sodium (Porcine) (Heparin Sod Inj 5000 Unit/Ml Vial) 7,765 unit IV X1 ONE; Protocol Stop: 12/05/24 00:06 Last Admin: 12/05/24 03:16 Dose: 7,765 unit Miconazole Nitrate (Miconazole Nitrate Cr 2% 15 Gm Tube) 0 gm TOP X1 ONE Stop: 12/05/24 04:53 Assessment & Plan Plan A 57-year-old male with 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 Cardiology is consulted in view of pulmonary embolism secondary to right lower extremity DVT for possible pulmonary thrombectomy. # Unprovoked DVT # Pulmonary embolism - Presented to the hospital with chief complaints of swelling of his right lower extremity and shortness of breath. - Patient was apparently normal 1 week ago, then noticed heaviness in his right lower extremity, later noted swelling in the right leg which is gradually progressive and associated with heaviness and numbness. - On the day of admission, patient noted to have shortness of breath even after walking short distances. - Denies trauma, recent illness, major surgeries, immobilization, cancer. - Denies previous history of CAD, similar complaints in the past, similar complaints in the family. - Vitals at the time of admission are stable except for mildly elevated blood pressure, 131/79 mmHg - Labs at the time of admission are significant for total bilirubin 1.4. Rest of CBC and CMP are within normal limits. Troponins came back negative - Chest x-ray at the time of admission did not show any opacities - Venous Doppler of bilateral lower extremities showed acute deep vein thrombosis - EKG done at that time showed normal sinus rhythm with incomplete right bundle branch block - CTA chest showed numerous bilateral pulmonary artery emboli including distal left main pulmonary artery as well as upper and lower lobe bilateral pulmonary artery branches Plan - Recommended to continue heparin drip for now - BNP is ordered - Echocardiogram is ordered, did not show any significant RV strain - As patient is hemodynamically stable for now, with negative troponins, no RV strain and is maintaining saturations on oxygen -less likely needs pulmonary thrombectomy - Recommended to continue to monitor patient's clinical condition, will do pulmonary thrombectomy if patient becomes hemodynamically unstable and needs more oxygen - Recommended to workup for DVT-to rule out inherited thrombophilias and malignancy # History of valley fever # Chronic marijuana use -Rest of the clinical conditions to be treated as per primary team Thank you for allowing us to involved in the care of the patient Patient plan of care was discussed with the paper and prints restorer, Dr. Ana Lilia Brian, PGY2
[2024-12-05 13:48] LABS: B-Type Natriuretic Peptide < 20 pg/mL (0-100)
[2024-12-05 14:21] LABS: Cocci Serology, IgM Negative (Negative)
[2024-12-05] MEDS: MICONAZOLE NITRATE CR 2% 15 GM TUBE TOP (15:49)
--- NOTE | 2024-12-05 15:57 | PC.SS ---
This is 58-year-old, , male who presented to the ED due to suffering from shortness of breath. Patient appeared alert and oriented to self, place and situation. Patient was pleasant, his mood and behavior were ordinary. Patient confirmed and verified home address and phone number. Patient reported that he resides at home. Patient is unemployed. Prior to admission, patient was independent with ADLs, no DME use. Patient assigned his friend, Joi (phone: [phone]), as his medical decision maker. Patient will follow-up at the [facility]. When medically clear, patient will return home; he will need an Uber. Discharge plan: home, will need Uber for transportation. Next of kin: Joi, derek.
[2024-12-05 17:46] LABS: Partial Thromboplastin Time 49.5 Seconds (22.0-36.0)
--- NOTE | 2024-12-05 18:10 | PC.NURSE ---
Per pharmacy, Narayan wallis to run heparin drip until bag is empty.
[2024-12-05] MEDS: HEPARIN SOD INJ 5000 UNIT/ML VIAL 3900 UNIT IV (18:14)
[2024-12-06] VITALS (10 sets, daily range): BP systolic 128–157; BP diastolic 73–92; PULSE 68–90; RESP 15–97; TEMP 36.2–36.5; O2SAT 97–99
[2024-12-06 01:18] LABS: Partial Thromboplastin Time > 139.0 Seconds (22.0-36.0)
--- NOTE | 2024-12-06 02:46 | PC.NURSE ---
Dr. Roach notified of patient complaining that pain in right lower extremity (inner thigh area) is feeling worse. No new orders.
[2024-12-06 05:20] LABS: Basophils # (Auto) 0.1 Thou/mm3 (0.0-0.2); Basophils % (Auto) 1 % (0-2.5); Eosinophils # (Auto) 0.4 Thou/mm3 (0.0-0.5); Eosinophils % (Auto) 6 % (0-10); Hematocrit 35.7 % (41.0-53.0); Hemoglobin 12.6 g/dL (13.5-16.0); Immature Granulocytes Auto 0.01 Thou/mm3 (0.00-0.00); Lymphocytes # (Auto) 1.9 Thou/mm3 (1.0-4.8); Lymphocytes % (Auto) 30 % (10-50); Mean Corpuscular HGB Conc 35.3 g/dl (31.0-37.0); Mean Corpuscular Hemoglobin 31.1 pg (25.0-35.0); Mean Corpuscular Volume 88 fL (80-100); Monocytes # (Auto) 0.9 Thou/mm3 (0.0-0.8); Monocytes % (Auto) 14 % (0-12); Neutrophils # (Auto) 3.0 Thou/mm3 (1.8-7.7); Neutrophils % (Auto) 48 % (37-80); Nucleated Red Blood Cell # 0.00 Thou/mm3 (0.00-0.00); Nucleated Red Blood Cell % 0 /100 WBC (0); Platelet Count 183 Thou/mm3 (140-440); RDW Standard Deviation 38.5 fL (35.1-43.9); Red Blood Count 4.05 Miln/mm3 (4.50-5.90); White Blood Count 6.3 Thou/mm3 (3.8-10.6)
[2024-12-06 06:08] LABS: Albumin, Serum 3.8 gm/dL (3.5-5.0); Anion Gap 8 (7-16); BUN/Creatinine Ratio 9 Ratio (12-20); Blood Urea Nitrogen 10 mg/dL (9-23); Calcium 8.5 mg/dL (8.3-10.6); Calcium (Corrected) 8.7 mg/dL (8.5-10.1); Carbon Dioxide 25.8 mMol/L (20.0-31.0); Chloride 106 mMol/L (98-107); Creatinine (Component) 1.1 mg/dL (0.6-1.3); Estimated Creatinine Clearance 89.1 mL/min (>60); Glucose 95 mg/dL (74-106); Magnesium 1.7 mg/dL (1.6-2.6); Osmolality,Calculated 278 (275-295); Phosphorous 2.7 mg/dL (2.4-5.1); Potassium 3.6 mMol/L (3.4-5.1); Sodium 140 mMol/L (136-145); eGFR > 60 See Note
[2024-12-06 09:48] LABS: Partial Thromboplastin Time 100.2 Seconds (22.0-36.0)
[2024-12-06] MEDS: Magnesium Sulfate 2 GM Ivpb 2 GM/50 ML BAG IV (10:06)
[2024-12-06] MEDS: POTASSIUM CHL 10 mEq IVPB 10 MEQ/100 ML BAG 100 MEQ IV ×3 (10:06→12:32)
--- NOTE | 2024-12-06 11:27 | ESPR_ITS ---
<Statement entered by Qamar Jimenez MD - 12/15/24 07:46> I reviewed above note and agree with findings and plans. I have also personally examined the patient with medicine team and went over assessment and plan with medical team including product development intern and resident physician. Documentation for date of: 12/06/24 Senior resident attestation: Patient evaluated and examined at the bedside, plan of care discussed with rest of the team including my attending physician, except as noted. Patient saturating well on room air, complaining of slight discomfort in his right leg, but no difficulty breathing. Reported swelling has improved a lot. Pending hypercoagulable workup labs, can follow-up outpatient, per cardiology patient can be started on Eliquis, heparin drip to be discontinued tonight, Eliquis 10 mg dose to be given at 9 PM, along 30 minutes overlap with heparin drip and then continued on Eliquis 10 mg twice daily for for 7 days, to be continued with Eliquis 5 mg twice daily later. Quresh PGY3 Subjective Subjective Interval history: Patient seen and examined at bedside this AM. Reported soreness in right leg overnight 2/10 on palpation, much improved compared to on admission. Breathing well on room air. Denies chest pain or shortness of breath. Labs and vitals were reviewed. Pending echo read. Pending hypercoagulation lab work up, added protein C and protein S to orders. Patient denies family history of coagulation disorders. 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 WBC within normal limits. Was previously on statin but self discontinued. Will restart due to elevated LDL and cholestrol on panel 12/05. Did not follow up with PCP but interested in following up at clinic. Recommended outpatient colonoscopy. Anticipate discharge home tomorrow. Review of systems otherwise negative except what is mentioned above. Exam Vital Signs Temp Pulse Resp BP Pulse Ox O2 Del Method 97.2 F 72 18 147/92 H 98 Room Air 12/06/24 08:00 12/06/24 08:00 12/06/24 08:00 12/06/24 08:00 12/06/24 08:00 12/06/24 08:00 Narrative Exam Physical Exam General: Awake and in no acute distress. Conversational and non-toxic appearing. HEENT: Normocephalic, atraumatic, mucous membranes moist. Heart: Regular rate and rhythm, normal S1 and S2, no murmurs. Lungs: Clear to auscultation with no wheezing or crackles. Abdomen: Soft, nondistended, nontender, positive bowel sounds. No guarding or rebound tenderness. Neurologic: Alert and oriented x3, no gross neurological deficit, and patient able to move all 4 extremities. Extremities: Non-pitting edema extending from right knee to thigh. Mild tenderness in right groin area on palpation. Skin: No rash or ecchymoses. Objective Labs 12/07/24 04:52 12/07/24 04:52 Labs: Laboratory Results - last 24 hr 12/05/24 12/05/24 12/05/24 04:46 09:35 17:09 WBC RBC Hgb Hct MCV MCH MCHC RDW Std Deviation Plt Count Neut % (Auto) Lymph % (Auto) [place] % (Auto) Eos % (Auto) Baso % (Auto) Neut # (Auto) Lymph # (Auto) [place] # (Auto) Eos # (Auto) Baso # (Auto) Immature Gran # (Auto) Absolute Nucleated RBC Immature Gran % Nucleated RBC % APTT 49.5 H D Sodium Potassium Chloride Carbon Dioxide Anion Gap BUN Creatinine Estim Creat Clear Calc eGFR BUN/Creatinine Ratio Glucose Calculated Osmolality Calcium Corrected Calcium Phosphorus Magnesium B-Natriuretic Peptide < 20 Albumin Coccidioides IgM Ab Negative 12/06/24 12/06/24 12/06/24 00:18 04:23 08:15 WBC 6.3 RBC 4.05 L Hgb 12.6 L Hct 35.7 L MCV 88 MCH 31.1 MCHC 35.3 RDW Std Deviation 38.5 Plt Count 183 Neut % (Auto) 48 Lymph % (Auto) 30 [place] % (Auto) 14 H Eos % (Auto) 6 Baso % (Auto) 1 Neut # (Auto) 3.0 Lymph # (Auto) 1.9 [place] # (Auto) 0.9 H Eos # (Auto) 0.4 Baso # (Auto) 0.1 Immature Gran # (Auto) 0.01 H Absolute Nucleated RBC 0.00 Immature Gran % 0 Nucleated RBC % 0 APTT > 139.0 H* D 100.2 H* D Sodium 140 Potassium 3.6 D Chloride 106 Carbon Dioxide 25.8 Anion Gap 8 BUN 10 Creatinine 1.1 Estim Creat Clear Calc 89.1 eGFR > 60 BUN/Creatinine Ratio 9 L Glucose 95 Calculated Osmolality 278 Calcium 8.5 Corrected Calcium 8.7 Phosphorus 2.7 Magnesium 1.7 B-Natriuretic Peptide Albumin 3.8 Coccidioides IgM Ab Quality Measures Quality Measures none Assessment & Plan Assessment Current Active Medications: Generic Name Dose Route Start Last Admin Trade Name Freq PRN Reason Stop Dose Admin Acetaminophen 650 mg 12/05/24 00:01 Acetaminophen 325 Mg Tablet PO 01/04/25 00:00 Q6H PRN Fever >100 or pain Albuterol 2.5 mg 12/05/24 00:01 Albuterol Rt 2.5 Mg/0.5 Ml Nebu INH 01/04/25 00:00 Q4HR PRN SHORTNESS OF BREATH OR WHEEZE Atorvastatin Calcium 40 mg 12/06/24 21:00 Atorvastatin Calcium 20 Mg Tablet PO 01/05/25 20:59 HS JERRY Heparin Sodium/Dextrose 25,000 unit in 250 mls @ 17.472 mls/hr 12/05/24 00:15 12/06/24 10:57 Heparin In D5w Ivpb IV 12/19/24 00:14 12 units/kg/hr .[id number] [id number] 11.648 mls/hr Titration Protocol 18 UNITS/KG/HR Potassium Chloride 10 meq in 100 mls @ 100 mls/hr 12/06/24 08:40 12/06/24 11:18 Kcl Ivpb IV 12/06/24 12:39 100 mls/hr Q1H JERRY Administration Ondansetron HCl 4 mg 12/05/24 00:01 Ondansetron Inj 2 Mg/Ml Inj 2 Ml IVP 01/04/25 00:00 Q6H PRN NAUSEA OR VOMITING Protocol Sodium Chloride 3 ml 12/05/24 00:01 Sodium Chloride Rt Padmini 0.9% 3 Ml Nebu INH 01/04/25 00:00 PRN PRN SOLN Plan Patient is a 78 male no significant past medical history presenting on with chief complaint of right leg swelling. Patient will be admitted for treatment and management of acute DVT and PE. #Acute, unprovoked DVT #Acute pulmonary embolism - On admission, patient had progressively worsening right leg swelling since last week now associated with shortness of breath. -Lower extremity venous doppler ultrasound (12/04/2024) showed Extensive acute deep vein thrombosis of right extremity. -Chest CTA (12/04/2024): Numerous bilateral pulmonary artery emboli Patient has no traditional risk factors for DVT. He will benefit from age- appropriate cancer screening and hypercoagulable workup. No known family history of coagulation disorders. Denies long distance travel. WELLS score: 3 (calf swelling, entire leg swollen, localized tenderness), high risk Per unofficial read by cardiology, no RV strain on echo Plan: - Pending Factor V Leiden, prothrombin gene mutation, anticardiolipin antibodies and anti-beta 2 glycoprotein 1 antibodies [These are not affected by starting anticoagulation] ? Continue on heparin drip - Consider transitioning to Eliquis ? Transthoracic echocardiogram pending - Recommend patient be referred for outpatient colonoscopy and age appropriate cancer screening ? machine oiler, Dr. Sung consulted, appreciate recommendations. Possible pulmonary thrombectomy if patient become hemodynamically unstable. #History of marijuana use Patient says that he uses medical marijuana daily for his neck pain. Plan: -Patient extensively counseled on smoking cessation and informed of the risks of blood clots, strokes etc. Patient agrees to think about it. 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 He only got an inhaler from his doctor. Plan: -Pending cocci serology Health maintenance: Disposition: Heparin Infusion. Pending echo. Cardiology consult pending Diet: Regular Lines: pIVs GI Prophylaxis: None Thrombo Prophylaxis: Heparin infusion Code status: FULL CODE Patient plan of care was discussed with the senior resident, Dr. Perez, and attending physician, Dr. Jimenez. Landy Cardozo, PGY-1
[2024-12-06] MEDS: POTASSIUM CHL 10 mEq IVPB 10 MEQ/100 ML BAG 75 MEQ IV (13:36)
[2024-12-06] MEDS: Heparin/D5w 25K 250 ML Ivpb 25,000 UNIT/250 ML BAG 11.648 UNIT IV (17:21)
[2024-12-06 18:08] LABS: Partial Thromboplastin Time 51.0 Seconds (22.0-36.0)
--- NOTE | 2024-12-06 19:25 | PC.NURSE ---
spoke with dr escoto regarding heparin drip. states to stop heparin drip at 2130 and give PM dose of eliquis.
--- NOTE | 2024-12-06 19:39 | ESPR_ITS ---
Documentation for date of: 12/06/24 Subjective Subjective Interval history: Patient is seen and examined at bedside No acute overnight events. Denies any other complaints and still on room air Vitals are stable. Currently on heparin drip Echocardiogram done showed normal EF with no RV strain Recommended to stop heparin drip tonight and start on Eliquis 10 Mg twice daily for 1 week. Start Eliquis 30 minutes before stopping heparin drip After 1 week, recommended to continue Eliquis 5 mg twice daily. Follow-up in outpatient basis with the tetryl nitrator operator If stable, can be discharged to home tomorrow Exam Vital Signs Temp Pulse Resp BP Pulse Ox O2 Del Method 97.2 F 71 16 136/89 H 99 Room Air 12/06/24 16:00 12/06/24 16:00 12/06/24 16:00 12/06/24 16:00 12/06/24 16:00 12/06/24 16:00 Narrative Exam General: Awake. Moderately built and nourished HEENT: Normocephalic, atraumatic, mucous membranes moist. Heart: Regular rate and rhythm, no murmurs. Lungs: Clear to auscultation with no wheezing or crackles. Abdomen: Soft, nondistended, nontender, positive bowel sounds. ?No guarding or rebound tenderness. Neurologic: Alert and oriented x3, no gross neurological deficit, and patient able to move all 4 extremities. Extremities: Noted extensive right lower extremity swelling with mild induration extending up to thigh with localized raise of temperature with minimal tenderness Skin: No rash or ecchymoses. Objective Labs 12/06/24 04:23 12/06/24 04:23 Labs: Laboratory Results - last 24 hr 12/06/24 12/06/24 12/06/24 00:18 04:23 08:15 WBC 6.3 RBC 4.05 L Hgb 12.6 L Hct 35.7 L MCV 88 MCH 31.1 MCHC 35.3 RDW Std Deviation 38.5 Plt Count 183 Neut % (Auto) 48 Lymph % (Auto) 30 Benzie % (Auto) 14 H Eos % (Auto) 6 Baso % (Auto) 1 Neut # (Auto) 3.0 Lymph # (Auto) 1.9 Benzie # (Auto) 0.9 H Eos # (Auto) 0.4 Baso # (Auto) 0.1 Immature Gran # (Auto) 0.01 H Absolute Nucleated RBC 0.00 Immature Gran % 0 Nucleated RBC % 0 APTT > 139.0 H* D 100.2 H* D Sodium 140 Potassium 3.6 D Chloride 106 Carbon Dioxide 25.8 Anion Gap 8 BUN 10 Creatinine 1.1 Estim Creat Clear Calc 89.1 eGFR > 60 BUN/Creatinine Ratio 9 L Glucose 95 Calculated Osmolality 278 Calcium 8.5 Corrected Calcium 8.7 Phosphorus 2.7 Magnesium 1.7 Albumin 3.8 12/06/24 17:02 WBC RBC Hgb Hct MCV MCH MCHC RDW Std Deviation Plt Count Neut % (Auto) Lymph % (Auto) Benzie % (Auto) Eos % (Auto) Baso % (Auto) Neut # (Auto) Lymph # (Auto) Benzie # (Auto) Eos # (Auto) Baso # (Auto) Immature Gran # (Auto) Absolute Nucleated RBC Immature Gran % Nucleated RBC % APTT 51.0 H D Sodium Potassium Chloride Carbon Dioxide Anion Gap BUN Creatinine Estim Creat Clear Calc eGFR BUN/Creatinine Ratio Glucose Calculated Osmolality Calcium Corrected Calcium Phosphorus Magnesium Albumin Quality Measures Quality Measures none Assessment & Plan Assessment Current Active Medications: Generic Name Dose Route Start Last Admin Trade Name Freq PRN Reason Stop Dose Admin Acetaminophen 650 mg 12/05/24 00:01 Acetaminophen 325 Mg Tablet PO 01/04/25 00:00 Q6H PRN Fever >100 or pain Albuterol 2.5 mg 12/05/24 00:01 Albuterol Rt 2.5 Mg/0.5 Ml Nebu INH 01/04/25 00:00 Q4HR PRN SHORTNESS OF BREATH OR WHEEZE Apixaban 5 mg 12/06/24 21:00 Apixaban 2.5 Mg Tablet PO 12/27/24 20:59 BID JERRY Atorvastatin Calcium 40 mg 12/06/24 21:00 Atorvastatin Calcium 20 Mg Tablet PO 01/05/25 20:59 HS JERRY Heparin Sodium/Dextrose 25,000 unit in 250 mls @ 17.472 mls/hr 12/05/24 00:15 12/06/24 17:21 Heparin In D5w Ivpb IV 12/06/24 21:30 12 units/kg/hr .[id number] JERRY 11.648 mls/hr Administration Protocol 18 UNITS/KG/HR Ondansetron HCl 4 mg 12/05/24 00:01 Ondansetron Inj 2 Mg/Ml Inj 2 Ml IVP 01/04/25 00:00 Q6H PRN NAUSEA OR VOMITING Protocol Sodium Chloride 3 ml 12/05/24 00:01 Sodium Chloride Rt Padmini 0.9% 3 Ml Nebu INH 01/04/25 00:00 PRN PRN SOLN Plan A 57-year-old male with 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 Cardiology is consulted in view of pulmonary embolism secondary to right lower extremity DVT for possible pulmonary thrombectomy. # Unprovoked DVT # Pulmonary embolism - Presented to the hospital with chief complaints of swelling of his right lower extremity and shortness of breath. - Patient was apparently normal 1 week ago, then noticed heaviness in his right lower extremity, later noted swelling in the right leg which is gradually progressive and associated with heaviness and numbness. - On the day of admission, patient noted to have shortness of breath even after walking short distances. - Denies trauma, recent illness, major surgeries, immobilization, cancer. - Denies previous history of CAD, similar complaints in the past, similar complaints in the family. - Vitals at the time of admission are stable except for mildly elevated blood pressure, 131/79 mmHg - Labs at the time of admission are significant for total bilirubin 1.4. Rest of CBC and CMP are within normal limits. Troponins came back negative - Chest x-ray at the time of admission did not show any opacities - Venous Doppler of bilateral lower extremities showed acute deep vein thrombosis - EKG done at that time showed normal sinus rhythm with incomplete right bundle branch block - CTA chest showed numerous bilateral pulmonary artery emboli including distal left main pulmonary artery as well as upper and lower lobe bilateral pulmonary artery branches Plan - Recommended to continue heparin drip for now and start Eliquis 10 Mg twice daily from 9 PM. Recommended to give Eliquis 30 minutes before stopping heparin - Continue Eliquis 10 Mg twice daily for 1 week and later 5 mg twice daily - Echocardiogram is ordered, did not show any significant RV strain - As patient is hemodynamically stable for now, with negative troponins, no RV strain and is maintaining saturations on oxygen -less likely needs pulmonary thrombectomy - Recommended to continue to monitor patient's clinical condition, will do pulmonary thrombectomy if patient becomes hemodynamically unstable and needs more oxygen - Recommended to workup for DVT-to rule out inherited thrombophilias and malignancy # History of valley fever # Chronic marijuana use -Rest of the clinical conditions to be treated as per primary team Thank you for allowing us to involved in the care of the patient Patient plan of care was discussed with the tetryl nitrator operator, Dr. Ana Lilia Brian, PGY2
--- NOTE | 2024-12-06 21:17 | PC.NURSE ---
spoke with dr feliz, states to stop heparin at 2130 and wait 30 minutes before giving pm eliquis.
[2024-12-06] MEDS: ATORVASTATIN CALCIUM 20 MG TABLET 40 MG PO (21:33)
[2024-12-06] MEDS: APIXABAN 2.5 MG TABLET 10 MG PO (22:00)
[2024-12-07] VITALS (7 sets, daily range): BP systolic 147–153; BP diastolic 75–98; PULSE 68–84; RESP 13–97; TEMP 36.3–36.7; O2SAT 97–98
[2024-12-07 05:19] LABS: Basophils # (Auto) 0.0 Thou/mm3 (0.0-0.2); Basophils % (Auto) 1 % (0-2.5); Eosinophils # (Auto) 0.5 Thou/mm3 (0.0-0.5); Eosinophils % (Auto) 7 % (0-10); Hematocrit 38.0 % (41.0-53.0); Hemoglobin 13.2 g/dL (13.5-16.0); Immature Granulocytes Auto 0.01 Thou/mm3 (0.00-0.00); Lymphocytes # (Auto) 1.6 Thou/mm3 (1.0-4.8); Lymphocytes % (Auto) 26 % (10-50); Mean Corpuscular HGB Conc 34.7 g/dl (31.0-37.0); Mean Corpuscular Hemoglobin 31.8 pg (25.0-35.0); Mean Corpuscular Volume 92 fL (80-100); Monocytes # (Auto) 0.9 Thou/mm3 (0.0-0.8); Monocytes % (Auto) 14 % (0-12); Neutrophils # (Auto) 3.2 Thou/mm3 (1.8-7.7); Neutrophils % (Auto) 52 % (37-80); Nucleated Red Blood Cell # 0.00 Thou/mm3 (0.00-0.00); Nucleated Red Blood Cell % 0 /100 WBC (0); Platelet Count 217 Thou/mm3 (140-440); RDW Standard Deviation 39.8 fL (35.1-43.9); Red Blood Count 4.15 Miln/mm3 (4.50-5.90); White Blood Count 6.1 Thou/mm3 (3.8-10.6)
[2024-12-07 05:28] LABS: INR 1.0 (0.9-1.3); Partial Thromboplastin Time 29.3 Seconds (22.0-36.0); Prothrombin Time 11.3 Seconds (9.0-12.2)
[2024-12-07 05:43] LABS: Albumin, Serum 3.9 gm/dL (3.5-5.0); Anion Gap 8 (7-16); BUN/Creatinine Ratio 8 Ratio (12-20); Blood Urea Nitrogen 9 mg/dL (9-23); Calcium 8.9 mg/dL (8.3-10.6); Calcium (Corrected) 9.0 mg/dL (8.5-10.1); Carbon Dioxide 29.3 mMol/L (20.0-31.0); Chloride 105 mMol/L (98-107); Creatinine (Component) 1.2 mg/dL (0.6-1.3); Estimated Creatinine Clearance 81.7 mL/min (>60); Glucose 91 mg/dL (74-106); Magnesium 2.0 mg/dL (1.6-2.6); Osmolality,Calculated 281 (275-295); Phosphorous 2.6 mg/dL (2.4-5.1); Potassium 4.0 mMol/L (3.4-5.1); Sodium 142 mMol/L (136-145); eGFR > 60 See Note
[2024-12-07] MEDS: APIXABAN 2.5 MG TABLET 10 MG PO (09:37)
--- NOTE | 2024-12-07 09:48 | ESDS_ITS ---
<Statement entered by Qamar Jimenez MD - 12/15/24 07:46> I reviewed above note and agree with findings and plans. I have also personally examined the patient with medicine team and went over assessment and plan with medical team including product management internship and resident physician. Planned Discharge Date 12/07/24 DS: Providers Provider Date of admission: 12/05/24 00:02 Primary care physician: Physician No Primary/Family Admitting Provider: Connor Youngblood MD Attending Provider on Admission: Qamar Jimenez MD Consults: 12/05/24 00:07 Consult to Cardiology Stat Comment: DVT and B/L PE Consulting Provider: Vipin Sung Attending Provider on DC: Qamar Jimenez MD Discharging Provider: Qamar Jimenez MD DS: Diagnosis Problem List Completed Was Problem List Reviewed/Reconciled?: Yes Hospital Course Hospital Course Hospital course: Summary: Patient is a 78 male with past medical history of hyperlipidemia presenting on 12/05 with chief complaint of right leg swelling and shortness of breath. Patient was admitted for treatment and management of acute DVT and PE. Patient was discharge on Eliquis, please follow up hypercoagulable workup started inpatient. ED Course: Vitals: BP 131/79, pulse 85, RR 18, temp 97.6 F, SpO2 96% on room air. Labs: T. bili 1.4. EKG - sinus rhythm, rate 82. No acute ST changes. Imaging: CXR showed no signs of pulmonary edema, effusion or consolidation. Lower extremity duplex ultrasound showed extensive acute DVT in the right leg. CTA showed numerous bilateral pulmonary artery emboli, including a distal left main pulmonary artery as well as upper and lower lobe bilateral pulmonary artery branches Hospitalization Course: On floors, patient was started on a heparin drip given ultrasound findings of lower extremity right leg DVT and CTA chest showing numerous bilateral artery emboli. Cardiology consulted, Dr. Sung, will currently does not recommend thrombectomy as patient stable on room air saturating at 100%. Patient eventually transition from heparin drip to Eliquis 10 mg twice daily for the next 7 days and eventually transition over to Eliquis 5 mg twice daily at least 3 months please follow-up with PCP. Pending coagulation work up, will require follow up outpatient. Discharge Recommendations: -Follow up with Primary care physician with labs within 5 days of discharge. You will need a screening colonoscopy on outpatient basis. -Take Eliquis 10 mg twice daily for 7 days followed by 5 mg twice daily. -Please followup with cardiology, Dr Sung and follow up within 7 days . -Please follow up with Dr. Perez at the Resident[facility] clinic to establish primary care. you may need to call the office to setup appointment. [facility] [address] [place] [address] If symptoms persist or worsen, return to the Emergency Department. Hospital Diagnoses: #Acute unprovoked DVT #Acute pulmonary embolism #Hyperlipidemia #History of marijuana use #History of Valley Fever [2013] Disposition: Safe discharge to home. Patient plan of care was discussed with the resident, Dr. Littlejohn, and attending physician, Dr. Jimenez. Landy Cardozo, PGY-1 - The patient's plan was discussed with attending Dr. Tony Littlejohn MD PGY2 Internal Medicine Time Spent with Patient Time attestation: Total time spent providing and/or coordinating discharge services: at least 30 minutes of care coordination Time spent: Greater than 30 minutes Exam Vital Signs Temp Pulse Resp BP Pulse Ox O2 Del Method 97.5 F 81 16 153/98 H 98 Room Air 12/07/24 07:46 12/07/24 07:46 12/07/24 07:46 12/07/24 07:46 12/07/24 07:46 12/07/24 07:46 Narrative Exam Physical Exam General: Awake and in no acute distress. Conversational and non-toxic appearing. HEENT: Normocephalic, atraumatic, mucous membranes moist. Heart: Regular rate and rhythm, normal S1 and S2, no murmurs. Lungs: Clear to auscultation with no wheezing or crackles. Abdomen: Soft, nondistended, nontender, positive bowel sounds. No guarding or rebound tenderness. Neurologic: Alert and oriented x3, no gross neurological deficit, and patient able to move all 4 extremities. Extremities: Non-pitting edema extending from right knee to thigh. Mild tenderness in right groin area on palpation. Skin: No rash or ecchymoses. Discharge Plan Plan Patient Disposition: HOME (Self Care) Care Plan Goals: Instructions: Follow up with Primary care physician with labs within 5 days of discharge. You will need a screening colonoscopy on outpatient basis. Take Eliquis 10 mg twice daily for 7 days followed by 5 mg twice daily. Please followup with cardiology, Dr Sung and follow up within 7 days . Please follow up with Dr. Perez at the [facility]ident[facility] to establish primary care. you may need to call the office to setup appointment. [facility] [address] [place] [address] If symptoms persist or worsen, return to the Emergency Department. Prescriptions/Referrals Prescriptions/Med Rec: New Eliquis DVT-PE Treat 30D Start 5 mg (74 tabs) tablets,dose pack 5 mg PO BID Qty: 74 0RF Rx Instructions: Follow dose pack instructions Referrals: Vipin Sung MD [Physician] - No Primary/Family,Physician [Primary Care Provider] - Mahad Perez MD [Resident] - Patient/Caregiver Discharge Instructions Meds to Beds: No Discharge Activity: activity as tolerated Education Materials: Understanding Deep Vein Thrombosis, Pulmonary Embolism, DVT Dc Print Language: Kinyarwanda Stand Alone Forms: [facility] Award Info., Patient Portal Info Letter Discharge Order Discharge Orders: Discharge (Routine); Ordered 12/07/24 Ordered By: Rachael Littlejohn Quality Discharge Quality Measures VTE prophylaxis
[2024-12-07 13:59] LABS: Cocci Serology, IgG Negative (Negative)
--- NOTE | 2024-12-07 18:36 | PD.RESPRO ---
Documentation for date of: 12/07/24 Subjective Subjective Interval history: Patient is seen and examined at bedside No acute overnight events. Denies any other complaints and still on room air. Denied chest pain or [place]. Vitals are stable. Echocardiogram done showed normal EF with no RV strain Continue on Eliquis 10 Mg twice daily for total of 1 week. After 1 week, recommended to continue Eliquis 5 mg twice daily. Follow-up in outpatient basis with the head banquet waitress Dr. Sung. Exam Vital Signs Temp Pulse Resp BP Pulse Ox O2 Del Method 97.3 F 69 16 147/75 H 98 Room Air 12/07/24 12:00 12/07/24 12:00 12/07/24 12:00 12/07/24 12:00 12/07/24 12:00 12/07/24 07:46 Narrative Exam General: Awake. Moderately built and nourished HEENT: Normocephalic, atraumatic, mucous membranes moist. Heart: Regular rate and rhythm, no murmurs. Lungs: Clear to auscultation with no wheezing or crackles. Abdomen: Soft, nondistended, nontender, positive bowel sounds. ?No guarding or rebound tenderness. Neurologic: Alert and oriented x3, no gross neurological deficit, and patient able to move all 4 extremities. Extremities: Noted extensive right lower extremity swelling with mild induration extending up to thigh with localized raise of temperature with minimal tenderness Skin: No rash or ecchymoses. Objective Labs 12/07/24 04:52 12/07/24 04:52 Labs: Laboratory Results - last 24 hr 12/05/24 12/07/24 04:46 04:52 WBC 6.1 RBC 4.15 L Hgb 13.2 L Hct 38.0 L MCV 92 MCH 31.8 MCHC 34.7 RDW Std Deviation 39.8 Plt Count 217 D Neut % (Auto) 52 Lymph % (Auto) 26 [place] % (Auto) 14 H Eos % (Auto) 7 Baso % (Auto) 1 Neut # (Auto) 3.2 Lymph # (Auto) 1.6 [place] # (Auto) 0.9 H Eos # (Auto) 0.5 Baso # (Auto) 0.0 Immature Gran # (Auto) 0.01 H Absolute Nucleated RBC 0.00 Immature Gran % 0 Nucleated RBC % 0 PT 11.3 INR 1.0 APTT 29.3 D Sodium 142 Potassium 4.0 Chloride 105 Carbon Dioxide 29.3 Anion Gap 8 BUN 9 Creatinine 1.2 Estim Creat Clear Calc 81.7 eGFR > 60 BUN/Creatinine Ratio 8 L Glucose 91 Calculated Osmolality 281 Calcium 8.9 Corrected Calcium 9.0 Phosphorus 2.6 Magnesium 2.0 Albumin 3.9 Coccidioides IgG Ab Negative Quality Measures Quality Measures VTE prophylaxis Assessment & Plan Assessment Current Active Medications: Generic Name Dose Route Start Last Admin Trade Name Freq PRN Reason Stop Dose Admin Acetaminophen 650 mg 12/05/24 00:01 Acetaminophen 325 Mg Tablet PO 01/04/25 00:00 Q6H PRN Fever >100 or pain Albuterol 2.5 mg 12/05/24 00:01 Albuterol Rt 2.5 Mg/0.5 Ml Nebu INH 01/04/25 00:00 Q4HR PRN SHORTNESS OF BREATH OR WHEEZE Apixaban 5 mg 12/06/24 21:00 Apixaban 2.5 Mg Tablet PO 12/27/24 20:59 BID JERRY Atorvastatin Calcium 40 mg 12/06/24 21:00 Atorvastatin Calcium 20 Mg Tablet PO 01/05/25 20:59 HS JERRY Heparin Sodium/Dextrose 25,000 unit in 250 mls @ 17.472 mls/hr 12/05/24 00:15 12/06/24 17:21 Heparin In D5w Ivpb IV 12/06/24 21:30 12 units/kg/hr .[id number] JERRY 11.648 mls/hr Administration Protocol 18 UNITS/KG/HR Ondansetron HCl 4 mg 12/05/24 00:01 Ondansetron Inj 2 Mg/Ml Inj 2 Ml IVP 01/04/25 00:00 Q6H PRN NAUSEA OR VOMITING Protocol Sodium Chloride 3 ml 12/05/24 00:01 Sodium Chloride Rt Padmini 0.9% 3 Ml Nebu INH 01/04/25 00:00 PRN PRN SOLN Plan A 57-year-old male with 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 Cardiology is consulted in view of pulmonary embolism secondary to right lower extremity DVT for possible pulmonary thrombectomy. # Unprovoked DVT # Pulmonary embolism - Presented to the hospital with chief complaints of swelling of his right lower extremity and shortness of breath. - Patient was apparently normal 1 week ago, then noticed heaviness in his right lower extremity, later noted swelling in the right leg which is gradually progressive and associated with heaviness and numbness. - On the day of admission, patient noted to have shortness of breath even after walking short distances. - Denies trauma, recent illness, major surgeries, immobilization, cancer. - Denies previous history of CAD, similar complaints in the past, similar complaints in the family. - Vitals at the time of admission are stable except for mildly elevated blood pressure, 131/79 mmHg - Labs at the time of admission are significant for total bilirubin 1.4. Rest of CBC and CMP are within normal limits. Troponins came back negative - Chest x-ray at the time of admission did not show any opacities - Venous Doppler of bilateral lower extremities showed acute deep vein thrombosis - EKG done at that time showed normal sinus rhythm with incomplete right bundle branch block - CTA chest showed numerous bilateral pulmonary artery emboli including distal left main pulmonary artery as well as upper and lower lobe bilateral pulmonary artery branches Plan - Recommended to continue Eliquis 10 Mg twice daily for total of 1 week and later 5 mg twice daily - Echocardiogram did not show any significant RV strain - As patient is hemodynamically stable for now, with negative troponins, no RV strain and is maintaining saturations on oxygen -not a candidate for pulmonary thrombectomy - Recommended to workup for DVT-to rule out inherited thrombophilias and malignancy # History of valley fever # Chronic marijuana use -Rest of the clinical conditions to be treated as per primary team Thank you for allowing us to involved in the care of the patient Patient plan of care was discussed with the head banquet waitress, Dr. Ana Lilia Mccord MD, PGY3 Attending Provider Attestation/Addendum I have personally seen and examined the patient separately on the above date of service and discussed the plan of care with the resident. I reviewed the resident Dr. Kelvin Mccord consultation progress note and agree with the resident findings and plan in the note above and have also edited the documentation to reflect my findings and plan. Vipin Sung M.D. Interventional Cardiology
[2024-12-10 06:28] LABS: Protein C Activity* 135 % normal (70-180); Protein S Activity* 100 % normal (70-150)
[2024-12-16 06:38] LABS: Factor V Leiden Mutation NEGATIVE; Prothrombin Fac II Mutation NEGATIVE
== END 2024-12-07 13:05 | disposition home or self-care (01) | DRG 197 ==
LOC: SERX 12-05 00:32 → SERHOLD 12-05 01:21 → S3SX 12-05 05:03
PROVIDERS: Physician Assistant; Student in an Organized Health Care Education/Training Program; Admitting Provider Internal Medicine; Emergency Provider Emergency Medicine; Visit Provider Internal Medicine
DX: I82.411 Acute embolism and thrombosis of right femoral vein (principal); F12.90 Cannabis use, unspecified, uncomplicated; I26.99 Other pulmonary embolism without acute cor pulmonale; E78.5 Hyperlipidemia, unspecified; Z71.6 Tobacco abuse counseling; Z79.01 Long term (current) use of anticoagulants; Z79.899 Other long term (current) drug therapy; I45.10 Unspecified right bundle-branch block; Z96.651 Presence of right artificial knee joint; Z87.09 Personal history of other diseases of the respiratory system
CPT/HCPCS: 36415; 71045; 71275; 80053; 80061; 80069; 81240; 81241; 83036; 83735; 83880; 84443; 84484; 85025; 85303; 85306; 85610; 85730; 86146; 86147; 86331; 86635; 87811; 93005; 93306; 93971; 96365; 96366; A4649; J1644; J3475; J3480; Q9967; A9270

== ENCOUNTER 2024-12-10 10:37 | Outpatient (AMB) | payer MEDICAID, SELFPAY ==
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
[2024-12-10 10:55] VITALS: BP 146/94; PULSE 70; RESP 18; TEMP 36.6; O2SAT 97; BMI 28.4
== END 2024-12-10 12:27 | disposition home or self-care (01) ==
LOC: HODAHC 10:37
PROVIDERS: Supervising Provider Internal Medicine
DX: I82.401 Acute embolism and thrombosis of unspecified deep veins of right lower extremity (principal); I26.99 Other pulmonary embolism without acute cor pulmonale
CPT/HCPCS: 99213; G0463